=== PATIENT | female | born 1970 ===

== ENCOUNTER 2017-11-26 14:28 | Inpatient (IN) | payer BC ==
[2017-11-26] MEDS ORDERED: Sodium Chloride 0.9% 500 ML IV STA (15:29)
--- NOTE | 2017-11-26 15:53 | ED PDOC ---
HPI: Abdomen Time Seen by Provider: 11/26/17 15:06 Chief Complaint (Nursing): Abdominal Pain Chief Complaint (Provider): Abdominal Pain History Per: Patient History/Exam Limitations: no limitations Onset/Duration Of Symptoms: Hrs (2:15am) Current Symptoms Are (Timing): Still Present Location Of Pain/Discomfort: LUQ Quality Of Discomfort: Sharp (radiating to the back) Associated Symptoms: denies: Fever, Chills Additional Complaint(s): Aleajndra Godoy, a 47 year old female presents to the Emergency Department complaining of severe left lower quadrant abdominal pain onset 2:15am and radiating to the back. She took Motrin to alleviate the pain. Reports of having similar abdominal pain for the past two years but describes the current pain as being worse and sharp. The patient says, the pain is similar to having a large ovarian cyst as she has had a surgical removal of the right ovarian cyst. However, her last menstrual period was heavy, which is normal for her for the last few years, and currently not having any bleeding. Denies hematuria, dysuria , or frequency. Reports no nausea, vomiting, diarrhea, fever or chills. PMD : Freedom Estrada MD Past Medical History Reviewed: Historical Data, Nursing Documentation, Vital Signs Vital Signs: Last Vital Signs Temp 98.8 F 11/28/17 16:17 Pulse 99 H 11/28/17 16:17 Resp 17 11/28/17 16:17 BP 131/86 11/28/17 16:17 Pulse Ox 99 11/28/17 16:17 - Medical History PMH: No Chronic Diseases - Surgical History Surgical History: Appendectomy Other surgeries: Right Ovarian Cyst, Surgical drainage of abscess on butt, Fibroid - Family History Family History: States: Other Other Family History: Cancer in the family; brother has throat cancer - Social History Current smoker - smoking cessation education provided: Yes Alcohol: None Drugs: Denies - Home Medications Home Medications: Ambulatory Orders Medication Instructions Recorded Ferrous Sulfate [Feosol] 325 mg PO TID tab 11/28/17 - Allergies Allergies/Adverse Reactions: Allergies Allergy/AdvReac Type Severity Reaction Status Date / Time No Known Allergies Allergy Verified 11/26/17 14:41 Review of Systems ROS Statement: Except As Marked, All Systems Reviewed And Found Negative (As per HPI, otherwise negative) Constitutional: Negative for: Fever, Chills Gastrointestinal: Positive for: Abdominal Pain (Left lower quadrant). Negative for: Nausea, Vomiting, Diarrhea Genitourinary Female: Negative for: Dysuria, Frequency, Hematuria Musculoskeletal: Positive for: Back Pain (abdominal pain is radiating to the back) Skin: Positive for: Other (reports swelling left axilla for 3 months) Physical Exam - Reviewed Nursing Documentation Reviewed: Yes Vital Signs Reviewed: Yes - Physical Exam Appears: Positive for: Uncomfortable, In Acute Distress Head Exam: Positive for: ATRAUMATIC, NORMOCEPHALIC Skin: Positive for: Warm, Dry, Pallor Eye Exam: Positive for: EOMI, PERRL ENT: Positive for: Normal ENT Inspection Neck: Positive for: Painless ROM, Supple Cardiovascular/Chest: Positive for: Regular Rate, Rhythm. Negative for: Murmur Respiratory: Positive for: Normal Breath Sounds. Negative for: Wheezing Gastrointestinal/Abdominal: Positive for: Bowel Sounds, Soft, Tenderness (LLQ and suprapubic). Negative for: Mass, Distended, Guarding, Rebound Back: Positive for: L CVA Tenderness Extremity: Positive for: Normal ROM. Negative for: Deformity Lymphatic: Negative for: Adenopathy Neurologic/Psych: Positive for: Alert. Negative for: Motor/Sensory Deficits - Laboratory Results Result Diagrams: 11/28/17 14:48 11/28/17 14:48 Interpretation Of Abn Labs: NOTE: LABS ABOVE ARE NOT RESULTS FROM ER EVALUATION - ECG O2 Sat by Pulse Oximetry: 100 (RA) Pulse Ox Interpretation: Normal Medical Decision Making Medical Decision Making: Time: 15:27 Initial Impression: Abdominal Pain Differential Diagnosis includes but is not limited to: Ovarian Cyst/ Torsion, Cystitis, Fibroid, Renocolic Other Differential Diagnosis includes but not considered: Left Axilla Swelling, Folliculitis, Abscess Initial Plan: --CMP --Lipase --Urine --Urine dipstick --CBC --Morphine 4mg IVP --Sodium Chloride 0.9% 500mls/hr IV --Pelvis/ Transvaginal US --Soft Tissue Limited US --Reevaluation Accession No. : [id number] Patient Name / ID : MACARIO BARRY / [id number] Exam Date : 11/26/2017 17:11:57 ( Approved ) Study Comment : Sex / Age : F / 47Y Creator : Janet Mir MD Dictator : Janet Mir MD Embossing Machine Tender : Rn Admissions : Janet Mir MD Approver2 : Report Date : 11/26/2017 18:23:04 My Comment : HISTORY: severe LEFT pelvic pain r/o torsion COMPARISON: None available. TECHNIQUE: Real-time transabdominal pelvic ultrasound was performed. In addition a transvaginal pelvic ultrasound was necessary to better depict pelvic anatomy. FINDINGS: UTERUS: Measures 11.2 x 6.3 x 6.9 cm. Retroverted. 1.6 x 1.6 x 1.5 cm right lower uterine fibroid; 2.1 x 2.1 x 2.5 cm anterior fundal fibroid; 2.1 x 1.1 x 2.2 cm right anterior uterine fibroid. ENDOMETRIUM: Measures 9 mm in diameter. CERVIX: No cervical abnormality identified. RIGHT OVARY: Measures 2.1 x 1.6 x 2.1 cm. Blood flow is demonstrated LEFT OVARY: Measures 2.6 x 1.4 x 2.2 cm. Blood flow is demonstrated FREE FLUID: No significant free fluid noted. OTHER FINDINGS: None. IMPRESSION: Fibroid uterus as above. Time:19:32 --Hemoglobin of 5 --Ultrasound demonstrated Fibroid Uterus --Patient has a history of anemia and transfusion in the past when had ovarian cyst surgery. Needs to be hospitalized due to severity, needs transfusion --DW patient risks/benefits of blood transfusion and consent obtained Scribe Attestation: Documented by Rafaela Owens, acting as a scribe for Alexia Roland MD Provider Scribe Attestation: All medical record entries made by the Scribe were at my direction and personally dictated by me. I have reviewed the chart and agree that the record accurately reflects my personal performance of the history, physical exam, medical decision making, and the department course for this patient. I have also personally directed, reviewed, and agree with the discharge instructions and disposition. Disposition - Clinical Impression Clinical Impression: Severe anemia, Fibroid (bleeding) (uterine) Discussed With DrClay: Flor Manjarrez Counseled Patient/Family Regarding: Studies Performed, Diagnosis - Disposition Disposition Time: 18:00 Condition: GUARDED - Pt Status Changed To: Hospital Disposition Of: Observation - POA Present On Arrival: None
[2017-11-26 16:21] LABS: ALB/GLOB RATIO 1.1 (1.0-2.1); ALBUMIN 3.9 g/dL (3.5-5.0); ALT/SGPT 96 U/L (9-52); AST/SGOT 59 U/L (14-36); BLOOD UREA NITROGEN 10 mg/dl (7-17); GFR AFRICAN-AMERICAN > 60; GFR NON-AFRICAN AMERICAN > 60; LIPASE 31 U/L (23-300)
[2017-11-26] MEDS ORDERED: Morphine 4 MG/ML VIAL ONE (16:23)
[2017-11-26] MEDS ORDERED: Morphine 4 MG/ML VIAL IVP STA (16:27)
[2017-11-26 16:33] LABS: BASO # 0.1 K/uL (0.0-0.2); BASO % 1.1 % (0.0-2.0); EOS # 0.3 K/uL (0.0-0.7); EOS % 3.7 % (0.0-4.0); LYMPH # 1.8 K/uL (1.0-4.3); LYMPH % 21.5 % (20.0-40.0); MEAN CORPUSCULAR HEMOGLOBIN 14.1 pg (27.0-31.0); MEAN CORPUSCULAR HGB CONC 27.1 g/dL (33.0-37.0); MEAN PLATELET VOLUME 8.6 fl (7.2-11.7); MONO # 0.8 K/uL (0.0-0.8); NEUT # 5.3 K/uL (1.8-7.0); NEUT % 63.7 % (50.0-75.0); NRBC % 0.6 % (0.0-0.0); RBC 3.7 Mil/uL (3.80-5.20); RED CELL DISTRIBUTION WIDTH 22.2 % (11.5-14.5); WHITE BLOOD COUNT 8.4 K/uL (4.8-10.8)
[2017-11-26 17:27] LABS: HEMOGLOBIN 5.2 g/dL (12.0-16.0)
--- NOTE | 2017-11-26 18:24 | US ---
HISTORY: severe LEFT pelvic pain r/o torsion COMPARISON: None available. TECHNIQUE: Real-time transabdominal pelvic ultrasound was performed. In addition a transvaginal pelvic ultrasound was necessary to better depict pelvic anatomy. FINDINGS: UTERUS: Measures 11.2 x 6.3 x 6.9 cm. Retroverted. 1.6 x 1.6 x 1.5 cm right lower uterine fibroid; 2.1 x 2.1 x 2.5 cm anterior fundal fibroid; 2.1 x 1.1 x 2.2 cm right anterior uterine fibroid. ENDOMETRIUM: Measures 9 mm in diameter. CERVIX: No cervical abnormality identified. RIGHT OVARY: Measures 2.1 x 1.6 x 2.1 cm. Blood flow is demonstrated LEFT OVARY: Measures 2.6 x 1.4 x 2.2 cm. Blood flow is demonstrated FREE FLUID: No significant free fluid noted. OTHER FINDINGS: None. IMPRESSION: Fibroid uterus as above.
[2017-11-26 20:25] LABS: IRON 17 ug/dL (37-170)
[2017-11-26 20:34] LABS: TOTAL IRON BINDING CAPACITY 433 ug/dL (250-450)
[2017-11-26 20:45] LABS: % IRON SATURATION 4 % (20-55)
[2017-11-26 21:42] LABS: IRON 12 ug/dL (37-170)
[2017-11-26 21:52] LABS: % IRON SATURATION 3 % (20-55); TOTAL IRON BINDING CAPACITY 450 ug/dL (250-450)
[2017-11-27] MEDS: Morphine 4 MG/ML VIAL IVP PRN ×2 (11:24→16:39)
--- NOTE | 2017-11-27 11:52 | RAD ---
HISTORY: admission COMPARISON: No prior. FINDINGS: LUNGS: No active pulmonary disease. PLEURA: No significant pleural effusion identified, no pneumothorax apparent. CARDIOVASCULAR: Normal. OSSEOUS STRUCTURES: No significant abnormalities. VISUALIZED UPPER ABDOMEN: Normal. OTHER FINDINGS: None. IMPRESSION: No active disease.
[2017-11-27 13:22] LABS: HEMOGLOBIN 7.9 g/dL (12.0-16.0); MEAN CELL VOLUME 61.5 fl (81.0-99.0); MEAN CORPUSCULAR HEMOGLOBIN 18.4 pg (27.0-31.0); MEAN CORPUSCULAR HGB CONC 29.9 g/dL (33.0-37.0); RBC 4.3 Mil/uL (3.80-5.20); RED CELL DISTRIBUTION WIDTH 34.6 % (11.5-14.5); WHITE BLOOD COUNT 8.7 K/uL (4.8-10.8)
--- NOTE | 2017-11-27 16:09 | CP.PCM.HP ---
History of Present Illness - History of Present Illness History of Present Illness: CC: LLQ Abdominal Pain History of Present Illness: A 47 year old female presents to the Emergency Department complaining of severe left lower quadrant abdominal pain 10/10 onset 2:15am and radiating to the back. She took Motrin to alleviate the pain. Reports of having similar abdominal pain for the past two years but describes the current pain as being worse and sharp. The patient says, the pain is similar to having a large ovarian cyst as she has had a surgical removal of the right ovarian cyst. However, her last menstrual period was normal. Denies hematuria, dysuria, or frequency. Reports no nausea, vomiting, diarrhea, fever or chills. PAin was 10/ 10 when it woke her up from sleep, intermittent and then after has become persistent. Denies fever or chills. In the ER, she was found to have severe anemia due to Menorrhagia due to the fibroid. Present on Admission - Present on Admission Any Indicators Present on Admission: No History of DVT/PE: No History of Uncontrolled Diabetes: No Urinary Catheter: No Review of Systems - Review of Systems All systems: reviewed and no additional remarkable complaints except - Constitutional Constitutional: As Per HPI - Gastrointestinal Gastrointestinal: As Per HPI Past Patient History - Past Medical History & Family History Past Medical History?: Yes - Past Social History Smoking Status: Current Some Days Smoker Alcohol: None Drugs: Denies - MUSCULOSKELETAL/RHEUMATOLOGICAL Hx Falls: Yes - PSYCHIATRIC Hx Substance Use: No - SURGICAL HISTORY Hx Appendectomy: Yes - ANESTHESIA Hx Anesthesia: Yes Hx Anesthesia Reactions: No Hx Malignant Hyperthermia: No Meds Allergies/Adverse Reactions: Allergies Allergy/AdvReac Type Severity Reaction Status Date / Time No Known Allergies Allergy Verified 11/26/17 14:41 Physical Exam - Constitutional Appears: In Acute Distress - Head Exam Head Exam: ATRAUMATIC, NORMAL INSPECTION, NORMOCEPHALIC - Eye Exam Eye Exam: EOMI, Normal appearance, PERRL Pupil Exam: NORMAL ACCOMODATION, PERRL - ENT Exam ENT Exam: Mucous Membranes Moist, Normal Exam - Neck Exam Neck exam: Positive for: Normal Inspection - Respiratory Exam Respiratory Exam: Clear to Auscultation Bilateral, NORMAL BREATHING PATTERN. absent: Rales, Wheezes - Cardiovascular Exam Cardiovascular Exam: REGULAR RHYTHM, +S1, +S2 - GI/Abdominal Exam GI & Abdominal Exam: Normal Bowel Sounds, Soft, Tenderness - Rectal Exam Rectal Exam: NORMAL INSPECTION - Extremities Exam Extremities exam: Positive for: full ROM, normal capillary refill, normal inspection - Back Exam Back exam: CVA tenderness (L), CVA tenderness (R), NORMAL INSPECTION - Neurological Exam Neurological exam: Alert, CN II-XII Intact, Normal Gait, Oriented x3, Reflexes Normal - Psychiatric Exam Psychiatric exam: Normal Affect, Normal Mood - Skin Skin Exam: Dry, Intact, Normal Color, Warm Results - Vital Signs Recent Vital Signs: Last Vital Signs Temp 97.4 F L 11/27/17 16:05 Pulse 93 H 11/27/17 16:05 Resp 20 11/27/17 16:05 BP 133/86 11/27/17 16:05 Pulse Ox 99 11/27/17 16:05 - Labs Result Diagrams: 11/27/17 12:16 11/26/17 16:00 Labs: Laboratory Results - last 24 hr 11/26/17 11/26/17 11/26/17 16:00 16:55 19:30 WBC 8.4 RBC 3.70 L Hgb 5.2 L* Hct 19.2 L MCV 52.0 L MCH 14.1 L MCHC 27.1 L RDW 22.2 H Plt Count 260 MPV 8.6 Neut % (Auto) 63.7 Lymph % (Auto) 21.5 Archer % (Auto) 10.0 Eos % (Auto) 3.7 Baso % (Auto) 1.1 Neut # 5.3 Lymph # 1.8 Archer # 0.8 Eos # 0.3 Baso # 0.1 Retic Count Sodium 141 Potassium 3.8 Chloride 106 Carbon Dioxide 27 Anion Gap 12 BUN 10 Creatinine 0.7 Est GFR ( Amer) > 60 Est GFR (Non-Af Amer) > 60 Random Glucose 90 Calcium 9.0 Iron TIBC % Saturation Ferritin Total Bilirubin 0.4 AST 59 H ALT 96 H Alkaline Phosphatase 73 Total Protein 7.3 Albumin 3.9 Globulin 3.4 Albumin/Globulin Ratio 1.1 Lipase 31 Blood Type O POSITIVE Blood Type Confirm Antibody Screen Negative Crossmatch See Detail BBK History Checked No verified bt 11/26/17 11/26/17 11/26/17 19:40 19:48 20:55 WBC RBC Hgb Hct MCV MCH MCHC RDW Plt Count MPV Neut % (Auto) Lymph % (Auto) Archer % (Auto) Eos % (Auto) Baso % (Auto) Neut # Lymph # Archer # Eos # Baso # Retic Count Sodium Potassium Chloride Carbon Dioxide Anion Gap BUN Creatinine Est GFR ( Amer) Est GFR (Non-Af Amer) Random Glucose Calcium Iron 17 L TIBC 433 % Saturation 4 L Ferritin 4.2 L Total Bilirubin AST ALT Alkaline Phosphatase Total Protein Albumin Globulin Albumin/Globulin Ratio Lipase Blood Type Blood Type Confirm O POSITIVE Antibody Screen Crossmatch BBK History Checked 11/26/17 11/26/17 11/26/17 20:55 20:55 21:23 WBC RBC Hgb Hct MCV MCH MCHC RDW Plt Count MPV Neut % (Auto) Lymph % (Auto) Archer % (Auto) Eos % (Auto) Baso % (Auto) Neut # Lymph # Archer # Eos # Baso # Retic Count Cancelled 2.7 H Sodium Potassium Chloride Carbon Dioxide Anion Gap BUN Creatinine Est GFR ( Amer) Est GFR (Non-Af Amer) Random Glucose Calcium Iron 12 L TIBC 450 % Saturation 3 L Ferritin Total Bilirubin AST ALT Alkaline Phosphatase Total Protein Albumin Globulin Albumin/Globulin Ratio Lipase Blood Type Blood Type Confirm Antibody Screen Crossmatch BBK History Checked 11/27/17 12:16 WBC 8.7 RBC 4.30 Hgb 7.9 L D Hct 26.4 L MCV 61.5 L D MCH 18.4 L MCHC 29.9 L RDW 34.6 H Plt Count 255 MPV Neut % (Auto) Lymph % (Auto) Archer % (Auto) Eos % (Auto) Baso % (Auto) Neut # Lymph # Archer # Eos # Baso # Retic Count Sodium Potassium Chloride Carbon Dioxide Anion Gap BUN Creatinine Est GFR ( Amer) Est GFR (Non-Af Amer) Random Glucose Calcium Iron TIBC % Saturation Ferritin Total Bilirubin AST ALT Alkaline Phosphatase Total Protein Albumin Globulin Albumin/Globulin Ratio Lipase Blood Type Blood Type Confirm Antibody Screen Crossmatch BBK History Checked - Imaging and Cardiology U/s Abdomen: Additional comment: Transvaginal/Pelvic U/S: Fibroid Utrus Assessment & Plan (1) Severe anemia Assessment and Plan: due to Menorrhagia S/P Transfusion of 2 Units PRBCs Uterine Fibroids Repeat CBC Gyne Consult Advised to have IR for possible embolizatioln for Fi=broid Status: Acute Priority: High (2) Abdominal pain Assessment and Plan: LLQ R/O Other Etiology CT abdmen/Pelvis with PO/IV Contrast Pain medication PRN Status: Acute Priority: High
[2017-11-27] MEDS ORDERED: Sodium Chloride 0.9% 50 ML IV ONE (16:49)
[2017-11-27] MEDS ORDERED: Iohexol 300 100 ML IJ ONE (16:49)
--- NOTE | 2017-11-27 17:30 | CT ---
PROCEDURE: CT Abdomen and Pelvis with and without intravenous contrast HISTORY: Abdominal Pain COMPARISON: None. TECHNIQUE: Axial images of the abdomen were obtained in the pre contrast, portal venous and delayed phases of enhancement. Coronal and sagittal reformats were generated. Contrast dose: 95 mL Omnipaque 300 Radiation dose: Total exam DLP = 1832.34 mGy-cm. This CT exam was performed using one or more of the following dose reduction techniques: Automated exposure control, adjustment of the mA and/or kV according to patient size, and/or use of iterative reconstruction technique. FINDINGS: LOWER THORAX: Unremarkable. LIVER: Unremarkable. No gross lesion or ductal dilatation. GALLBLADDER AND BILE DUCTS: Unremarkable. PANCREAS: Unremarkable. No gross lesion or ductal dilatation. SPLEEN: Unremarkable. ADRENALS: Unremarkable. No mass. KIDNEYS AND URETERS: Unremarkable. No hydronephrosis. No solid mass. VASCULATURE: Unremarkable. No aortic aneurysm. BOWEL: Unremarkable. No obstruction. No gross mural thickening. APPENDIX: Not identified. No secondary findings to suggest acute appendicitis, however. PERITONEUM: Unremarkable. No free fluid. No free air. LYMPH NODES: Unremarkable. No enlarged lymph nodes. BLADDER: Unremarkable. REPRODUCTIVE: Normal uterus. BONES: No acute fracture. OTHER FINDINGS: None. IMPRESSION: Unremarkable abdominal/pelvic CT examination.
--- NOTE | 2017-11-27 18:06 | CARD ---
APPROVED REPORT EKG Measurement Heart [id number] <Conclusion> Normal sinus rhythm Normal ECG
--- NOTE | 2017-11-27 20:28 | CP.PCM.CON ---
<Mira Brownlee - Last Filed: 11/27/17 21:37> History of Present Illness - History of Present Illness History of Present Illness: GUARD IMMIGRATION consult. A 47 year old female complaining of severe left lower quadrant abdominal pain onset 2:15am and radiating to the back. She took Motrin to alleviate the pain. Reports of having similar abdominal pain for the past two years but describes the current pain as being worse and sharp. The patient says, the pain is similar to having a large ovarian cyst as she has had a surgical removal of the right ovarian cyst. Patient reports h/o heavy menses lasting 5-6 days requiring pads change e/1-2 hours. However, her last menstrual period was normal. Denies hematuria, dysuria, or frequency. Reports no nausea, vomiting, diarrhea, fever or chills,no chest pain or palpitations, dizziness. Primary OB: Dr Aviles. PMH: denies FMH: denies PSH: Appendectomy R ovarian cyst Meds: none NKDA SH: denies tobacco, etoh, drugs. Meds Allergies/Adverse Reactions: Allergies Allergy/AdvReac Type Severity Reaction Status Date / Time No Known Allergies Allergy Verified 11/26/17 14:41 - Medications Medications: Current Medications Ferrous Sulfate (Feosol) 325 mg PO TID ELEAZAR Last Admin: 11/27/17 18:00 Dose: 325 mg Morphine Sulfate (Morphine) 2 mg IVP Q4 PRN PRN Reason: Pain, severe (8-10) Last Admin: 11/27/17 16:39 Dose: 2 mg Physical Exam - Constitutional Appears: Well, No Acute Distress - Head Exam Head Exam: NORMAL INSPECTION - Eye Exam Eye Exam: EOMI, PERRL - Respiratory Exam Respiratory Exam: Clear to Auscultation Bilateral. absent: Rhonchi, Wheezes - Cardiovascular Exam Cardiovascular Exam: REGULAR RHYTHM, +S1, +S2. absent: Systolic Murmur - GI/Abdominal Exam GI & Abdominal Exam: Normal Bowel Sounds, Soft. absent: Distended Additional comments: Tender to palpation on LLQ, no masses palpated. - Exam Speculum exam: NORMAL SPECULUM EXAM. absent: Vaginal Bleeding Bimanual exam: NORMAL BIMANUAL EXAM Additional comments: Sanding Machine Tender in room: Shantal Jasmine, medical student. - Neurological Exam Neurological exam: Alert, CN II-XII Intact, Oriented x3 - Skin Skin Exam: Dry, Intact, Warm Results - Vital Signs Recent Vital Signs: Last Vital Signs Temp 98.6 F 11/27/17 19:17 Pulse 96 H 11/27/17 19:17 Resp 20 11/27/17 19:17 BP 122/80 11/27/17 19:17 Pulse Ox 98 11/27/17 19:17 - Labs Result Diagrams: 11/27/17 12:16 11/26/17 16:00 Labs: Laboratory Results - last 24 hr 11/26/17 11/26/17 11/26/17 19:30 19:40 19:48 WBC RBC Hgb Hct MCV MCH MCHC RDW Plt Count Retic Count Iron TIBC 433 % Saturation 4 L Ferritin Blood Type O POSITIVE Blood Type Confirm O POSITIVE Antibody Screen Negative Crossmatch See Detail BBK History Checked No verified bt 11/26/17 11/26/17 11/26/17 20:55 20:55 20:55 WBC RBC Hgb Hct MCV MCH MCHC RDW Plt Count Retic Count Cancelled Iron 12 L TIBC 450 % Saturation 3 L Ferritin 4.2 L Blood Type Blood Type Confirm Antibody Screen Crossmatch BBK History Checked 11/26/17 11/27/17 21:23 12:16 WBC 8.7 RBC 4.30 Hgb 7.9 L D Hct 26.4 L MCV 61.5 L D MCH 18.4 L MCHC 29.9 L RDW 34.6 H Plt Count 255 Retic Count 2.7 H Iron TIBC % Saturation Ferritin Blood Type Blood Type Confirm Antibody Screen Crossmatch BBK History Checked Assessment & Plan - Assessment and Plan (Free Text) Assessment: Anemia, severe -H/H: 7.9/26.4 after 2 units of PRBC -likely secondary to menorrhagia -evidence of multinodular fibroid as per TV US -we recommend 1 more unit of PRBC to increase Hb up to 9 Uterine Fibroid -h/o heavy menses -TV US showed multinodular fibroid -F/U with primary OB Dr Aviles as outpatient. Thanks for opportunity to evaluate this patient. Case discussed with Dr Desmond Acuna PGY 1 <Mike Logan - Last Filed: 11/29/17 15:49> Results - Vital Signs Recent Vital Signs: Last Vital Signs Temp 98.8 F 11/28/17 16:17 Pulse 99 H 11/28/17 16:17 Resp 17 11/28/17 16:17 BP 131/86 11/28/17 16:17 Pulse Ox 99 11/28/17 16:17 - Labs Result Diagrams: 11/28/17 14:48 11/28/17 14:48 Labs: Laboratory Results - last 24 hr 11/26/17 11/28/17 20:55 14:48 Sodium 142 Potassium 4.2 Chloride 104 Carbon Dioxide 27 Anion Gap 15 BUN 12 Creatinine 0.7 Est GFR ( Amer) > 60 Est GFR (Non-Af Amer) > 60 Random Glucose 95 Calcium 9.0 RBC Folate 1616 Attending/Attestation - Attestation I have personally seen and examined this patient.: Yes I have fully participated in the care of the patient.: Yes I have reviewed all pertinent clinical information: Yes
[2017-11-28 09:11] LABS: MCH 18.3 pg (27.0-33.0); MCV 63.3 fL (80.0-100.0)
[2017-11-28 15:39] LABS: HEMOGLOBIN 8.6 g/dL (12.0-16.0); MEAN CELL VOLUME 60.8 fl (81.0-99.0); MEAN CORPUSCULAR HEMOGLOBIN 18.7 pg (27.0-31.0); MEAN CORPUSCULAR HGB CONC 30.7 g/dL (33.0-37.0); RBC 4.6 Mil/uL (3.80-5.20); RED CELL DISTRIBUTION WIDTH 35.2 % (11.5-14.5); WHITE BLOOD COUNT 9.9 K/uL (4.8-10.8)
[2017-11-28 16:07] LABS: BLOOD UREA NITROGEN 12 mg/dl (7-17); GFR AFRICAN-AMERICAN > 60; GFR NON-AFRICAN AMERICAN > 60
[2017-11-28 16:18] VITALS: BP 131/86; PULSE 99; RESP 17; TEMP 98.8
--- NOTE | 2017-11-29 00:15 | CP.PCM.DIS ---
Provider - Provider Date of Admission: 11/27/17 16:21 Attending physician: Flor Manjarrez MD Time Spent in preparation of Discharge (in minutes): 35 Diagnosis - Discharge Diagnosis (1) Severe anemia Status: Acute Priority: High (2) Abdominal pain Status: Acute Priority: High (3) Fibroid (bleeding) (uterine) Status: Acute (4) Sickle cell trait Status: Acute Hospital Course - Lab Results Lab Results: Most Recent Lab Values WBC 9.9 K/uL (4.8-10.8) 11/28/17 14:48 RBC 4.60 Mil/uL (3.80-5.20) 11/28/17 14:48 Hgb 8.6 g/dL (12.0-16.0) L 11/28/17 14:48 Hct 28.0 % (34.0-47.0) L 11/28/17 14:48 MCV 60.8 fl (81.0-99.0) L 11/28/17 14:48 MCH 18.7 pg (27.0-31.0) L 11/28/17 14:48 MCHC 30.7 g/dL (33.0-37.0) L 11/28/17 14:48 RDW 35.2 % (11.5-14.5) H 11/28/17 14:48 Plt Count 256 K/uL (130-400) 11/28/17 14:48 MPV 8.6 fl (7.2-11.7) 11/26/17 16:55 Neut % (Auto) 63.7 % (50.0-75.0) 11/26/17 16:55 Lymph % (Auto) 21.5 % (20.0-40.0) 11/26/17 16:55 [place] % (Auto) 10.0 % (0.0-10.0) 11/26/17 16:55 Eos % (Auto) 3.7 % (0.0-4.0) 11/26/17 16:55 Baso % (Auto) 1.1 % (0.0-2.0) 11/26/17 16:55 Neut # 5.3 K/uL (1.8-7.0) 11/26/17 16:55 Lymph # 1.8 K/uL (1.0-4.3) 11/26/17 16:55 [place] # 0.8 K/uL (0.0-0.8) 11/26/17 16:55 Eos # 0.3 K/uL (0.0-0.7) 11/26/17 16:55 Baso # 0.1 K/uL (0.0-0.2) 11/26/17 16:55 Retic Count 2.7 % (0.5-1.5) H 11/26/17 21:23 Hemoglobinopathy Red Blood Count 4.24 Mill/mcL (3.80-5.10) 11/26/17 14:00 Hemoglobinopathy Hct 26.8 % (35.0-45.0) L 11/26/17 14:00 Hemoglobinopathy Hgb 7.8 g/dL (11.7-15.5) L 11/26/17 14:00 Hemoglobinopathy MCV 63.3 fL (80.0-100.0) L 11/26/17 14:00 Hemoglobinopathy MCH 18.3 pg (27.0-33.0) L 11/26/17 14:00 Hemoglobinopathy RDW 34.7 % (11.0-15.0) H 11/26/17 14:00 Sodium 142 mmol/l (132-148) 11/28/17 14:48 Potassium 4.2 MMOL/L (3.6-5.0) 11/28/17 14:48 Chloride 104 mmol/L (98-107) 11/28/17 14:48 Carbon Dioxide 27 mmol/L (22-30) 11/28/17 14:48 Anion Gap 15 (10-20) 11/28/17 14:48 BUN 12 mg/dl (7-17) 11/28/17 14:48 Creatinine 0.7 mg/dl (0.7-1.2) 11/28/17 14:48 Est GFR ( Amer) > 60 11/28/17 14:48 Est GFR (Non-Af Amer) > 60 11/28/17 14:48 Random Glucose 95 mg/dL (65-105) 11/28/17 14:48 Calcium 9.0 mg/dL (8.4-10.2) 11/28/17 14:48 Iron 12 ug/dL (37-170) L 11/26/17 20:55 TIBC 450 ug/dL (250-450) 11/26/17 20:55 % Saturation 3 % (20-55) L 11/26/17 20:55 Ferritin 4.2 ng/Ml (6.24-137.0) L 11/26/17 20:55 Total Bilirubin 0.4 mg/dl (0.2-1.3) 11/26/17 16:00 AST 59 U/L (14-36) H 11/26/17 16:00 ALT 96 U/L (9-52) H 11/26/17 16:00 Alkaline Phosphatase 73 U/L (38-126) 11/26/17 16:00 Total Protein 7.3 G/DL (6.3-8.2) 11/26/17 16:00 Albumin 3.9 g/dL (3.5-5.0) 11/26/17 16:00 Globulin 3.4 gm/dL (2.2-3.9) 11/26/17 16:00 Albumin/Globulin Ratio 1.1 (1.0-2.1) 11/26/17 16:00 Lipase 31 U/L (23-300) 11/26/17 16:00 RBC Folate 1616 ng/mL RBC (>280) 11/26/17 20:55 Blood Type O POSITIVE 11/26/17 19:30 Blood Type Confirm O POSITIVE 11/26/17 19:48 Antibody Screen Negative 11/26/17 19:30 Crossmatch See Detail 11/26/17 19:30 BBK History Checked No verified bt 11/26/17 19:30 - Date & Time of H&P Date of H&P: 11/27/17 Discharge Exam - Head Exam Head Exam: ATRAUMATIC, NORMAL INSPECTION, NORMOCEPHALIC - Eye Exam Eye Exam: EOMI, Normal appearance, PERRL Pupil Exam: NORMAL ACCOMODATION, PERRL - ENT Exam ENT Exam: Mucous Membranes Moist, Normal Exam - Neck Exam Neck exam: Full Rom, Normal Inspection - Respiratory Exam Respiratory Exam: Clear to PA & Lateral, NORMAL BREATHING PATTERN. absent: Rales, Wheezes - Cardiovascular Exam Cardiovascular Exam: REGULAR RHYTHM, +S1, +S2 - GI/Abdominal Exam GI & Abdominal Exam: Normal Bowel Sounds, Soft. absent: Rigid, Tenderness - Extremities Exam Extremities exam: full ROM, normal capillary refill, pedal pulses present - Back Exam Back exam: FULL ROM, NORMAL INSPECTION. absent: CVA tenderness (L), CVA tenderness (R) - Neurological Exam Neurological exam: Alert, CN II-XII Intact, Normal Gait, Oriented x3, Reflexes Normal - Psychiatric Exam Psychiatric exam: Normal Affect, Normal Mood - Skin Skin Exam: Dry, Intact, Normal Color, Warm - Additional Findings Additional findings: CT Abdomen and Pelvis with and without intravenous contrast HISTORY: Abdominal Pain COMPARISON: None. TECHNIQUE: Axial images of the abdomen were obtained in the pre contrast, portal venous and delayed phases of enhancement. Coronal and sagittal reformats were generated. Contrast dose: 95 mL Omnipaque 300 Radiation dose: Total exam DLP = 1832.34 mGy-cm. This CT exam was performed using one or more of the following dose reduction techniques: Automated exposure control, adjustment of the mA and/or kV according to patient size, and/or use of iterative reconstruction technique. FINDINGS: LOWER THORAX: Unremarkable. LIVER: Unremarkable. No gross lesion or ductal dilatation. GALLBLADDER AND BILE DUCTS: Unremarkable. PANCREAS: Unremarkable. No gross lesion or ductal dilatation. SPLEEN: Unremarkable. ADRENALS: Unremarkable. No mass. KIDNEYS AND URETERS: Unremarkable. No hydronephrosis. No solid mass. VASCULATURE: Unremarkable. No aortic aneurysm. BOWEL: Unremarkable. No obstruction. No gross mural thickening. APPENDIX: Not identified. No secondary findings to suggest acute appendicitis, however. PERITONEUM: Unremarkable. No free fluid. No free air. LYMPH NODES: Unremarkable. No enlarged lymph nodes. BLADDER: Unremarkable. REPRODUCTIVE: Normal uterus. BONES: No acute fracture. OTHER FINDINGS: None. IMPRESSION: Unremarkable abdominal/pelvic CT examination. Discharge Plan - Follow Up Plan Condition: GUARDED Disposition: HOME/ ROUTINE Instructions: Acute Abdominal Pain (DC), Anemia (DC) Additional Instructions: Follow up with Dr. Stefan Wilkerson [address] [place], [place] [phone] Follow up with your primary doctor in one week
[2017-11-29 20:58] VITALS: O2SAT 100
[2017-12-01 10:37] LABS: HEMOGLOBIN A 78.2 Percent (>96.0); HEMOGLOBIN S 17.8 Percent (0.0-0.0)
== END 2017-11-28 17:51 | disposition home or self-care (01) | DRG 812 ==
LOC: H.ER 14:28 → H.ERHOLD 18:51 → H.TEL 22:13 → OBSVTOIN 11-27 16:21 → H.TEL 11-28 03:01
PROVIDERS: ADMIT Internal Medicine; ATTEND Internal Medicine
PROC: 30233N1 Transfusion of Nonautologous Red Blood Cells into Peripheral Vein, Percutaneous Approach (ICD-10-PCS; principal; 2017-11-26)
DX: D50.0 Iron deficiency anemia secondary to blood loss (chronic) (principal); D25.9 Leiomyoma of uterus, unspecified; D57.3 Sickle-cell trait; N92.0 Excessive and frequent menstruation with regular cycle; F17.200 Nicotine dependence, unspecified, uncomplicated; Z90.49 Acquired absence of other specified parts of digestive tract